=== PATIENT | male | born 1975 | race Caucasian/White ===

== ENCOUNTER 2016-10-21 20:43 | Emergency (ER) | payer MEDICAID, OTHER ==
[2016-10-21 21:19] VITALS: BP 151/81
[2016-10-21] MEDS ORDERED: Lidocaine 1% 20 ML MDV ONE (21:25)
[2016-10-21] MEDS ORDERED: Lidocaine 1% 20 ML MDV SUBCUT ONE (21:56)
--- NOTE | 2016-10-21 22:01 | EDM.PDOC ---
ED HPI GENERAL MEDICAL PROBLEM - General Chief Complaint: Laceration Stated Complaint: RIGHT FOOT INJURY Time Seen by Provider: 10/21/16 21:19 Source of Information: Reports: Patient History Limitations: Reports: No Limitations - History of Present Illness INITIAL COMMENTS - FREE TEXT/NARRATIVE: Patient presents with injury to right second toe that occurred shortly prior to ER arrival. He stubbed his toe on a clean sharp axe head. He can move and wiggle it normally he says. He says his last tetanus was 3 years ago. No diabetes or immunocompromise. Right 2-Long toe Pain Score (Numeric/FACES): 3 - Related Data Allergies Allergy/AdvReac Type Severity Reaction Status Date / Time hydrocodone [From Vicodin] Allergy Nausea and Verified 10/21/16 21:06 Vomiting Home Meds: Home Meds . [No Known Home Meds] 10/21/16 [History] ED ROS GENERAL - Review of Systems Review Of Systems: ROS reveals no pertinent complaints other than HPI. ED EXAM, SKIN/RASH Exam: See Below Exam Limited By: No Limitations General Appearance: Alert, WD/WN, No Apparent Distress Eye Exam: Bilateral Eye: EOMI, Normal Inspection, PERRL Ears: Normal External Exam, Hearing Grossly Normal Throat/Mouth: Normal Lips, Normal Voice, No Airway Compromise Head: Atraumatic, Normocephalic Neck: Full Range of Motion Respiratory/Chest: No Respiratory Distress, No Accessory Muscle Use Cardiovascular: No Edema Extremities: Normal Range of Motion, Normal Capillary Refill, Other (Right second toe has a laceration diagonally across the dorsum of the middle and distal phalanges that ends medial to the nail without injuring the nail. No evidence of tendon injury. Otherwise described in the procedure note.) Neurological: Alert, Oriented, Normal Cognition Psychiatric: Normal Affect, Normal Mood Skin: Warm, Dry, Normal Color, No Rash, Tattoo(s) ED SKIN PROCEDURES - Laceration/Wound Repair Right Dorsal Toes Lac/Wound length In cm: 4 Appearance: Subcutaneous, Irregular (V-shaped), Clean Distal NVT: No Tendon Injury, Other (small area of numbness immediately distal to laceration; sensation intact at distal tip; CMS intact distally) Anesthetic Type: Local Local Anesthesia - Lidocaine (Xylocaine): 1% Plain Local Anesthetic Volume: 3cc Skin Prep: Providone-Iodine (Betadine) Saline Irrigation (cc's): 100 Exploration/Debridement/Repair: Wound Explored Closed with: Sutures Suture Size: 4-0 # of Sutures: 8 Suture Type: Nylon, Interrupted, Simple Sterile Dressing Applied: Nurse Tetanus Status Addressed: Yes Complications: No Course - Vital Signs Last Recorded V/S: Last Vital Signs Temp 99.3 F 10/21/16 21:09 Pulse 96 10/21/16 21:09 Resp 16 10/21/16 21:09 BP 151/81 H 10/21/16 21:09 Pulse Ox 97 10/21/16 21:09 - Orders/Labs/Meds Meds: Medications Discontinued Medications Generic Name Dose Route Start Last Admin Trade Name Freq PRN Reason Stop Dose Admin Lidocaine HCl Confirm 10/21/16 21:25 Xylocaine 1% Administered 10/21/16 21:26 Dose 20 ml .ROUTE .STK-MED ONE - Re-Assessments/Exams Free Text/Narrative Re-Assessment/Exam: 10/21/16 22:04 Discussed findings and treatment plan with patient and he was discharged in stable condition. Departure - Departure Time of Disposition: 21:56 Disposition: Home, Self-Care 01 Condition: Good Clinical Impression: Laceration of toe without foreign body present or damage to nail Qualifiers: Encounter type: initial encounter Toe: lesser toe Laterality: right Qualified Code(s): S91.114A - Laceration without foreign body of right lesser toe(s) without damage to nail, initial encounter - Discharge Information Instructions: Laceration Care, Adult, [id number] Referrals: PCP,None [Primary Care Provider] - Additional Instructions: 1. Keep wound clean and dry except for showering. No submerging in tub or pool until sutures are removed. 2. If any redness, drainage, fever or other sign of infection appear recheck SHANTAL with your PCP. 3. Follow up with your PCP in 10 days for suture removal.
== END 2016-10-21 22:10 | disposition home or self-care (01) ==
LOC: KA.ED 20:43
DX: S91.114A Laceration without foreign body of right lesser toe(s) without damage to nail, initial encounter (principal); Z88.5 Allergy status to narcotic agent; W27.0XXA Contact with workbench tool, initial encounter
CPT/HCPCS: 12002; 99283

== ENCOUNTER 2020-11-26 13:08 | Emergency (ER) | payer SELFPAY ==
--- NOTE | 2020-11-26 13:18 | EDM.PDOC ---
ED HPI GENERAL MEDICAL PROBLEM - General Chief Complaint: Lower Extremity Injury/Pain Stated Complaint: LEFT LEG PAIN Time Seen by Provider: 11/26/20 13:17 Source of Information: Reports: Patient History Limitations: Reports: No Limitations - History of Present Illness INITIAL COMMENTS - FREE TEXT/NARRATIVE: 45 YO WM PRESENTS TO ER COMPLAINING OF LEFT LEG PAIN AFTER INJURY WHILE WRESTLING. PT HOLDING HIS LEFT HAMSTRING COMPLAINING OF PAIN. PT HERE REQUESTING AN MRI TO EVALUATE HAMSTRING INJURY. PT CONCERNED FOR TEAR. PT ABLE TO AMBULATE WITHOUT DIFFICULTY, BUT REPORTS LEFT HAMSTRING IS VERY TENDER TO TOUCH. NO KNEE, LOW BACK OR HIP INJURY NOTED. PT DENIES ANY RADICULAR PAIN. Onset Date: 11/25/20 Location: Reports: Lower Extremity, Left Quality: Reports: Ache Severity: Moderate Improves with: Reports: Rest Worsens with: Reports: Movement Context: Reports: Activity Associated Symptoms: Reports: No Other Symptoms Left Upper Thigh Pain Score (Numeric/FACES): 6 - Related Data Allergies Allergy/AdvReac Type Severity Reaction Status Date / Time hydrocodone [From Vicodin] Allergy Nausea and Verified 11/26/20 13:57 Vomiting Home Meds: Home Meds . 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 Social & Family History - Caffeine Use Caffeine Use: Reports: Coffee Review of Systems - Review of Systems Review Of Systems: See Below Constitutional: Reports: No Symptoms Eyes: Reports: No Symptoms Ears: Reports: No Symptoms Nose: Reports: No Symptoms Mouth/Throat: Reports: No Symptoms Respiratory: Reports: No Symptoms Cardiovascular: Reports: No Symptoms GI/Abdominal: Reports: No Symptoms Genitourinary: Reports: No Symptoms Musculoskeletal: Reports: Leg Pain, Muscle Pain Skin: Reports: No Symptoms Neurological: Reports: No Symptoms Psychiatric: Reports: No Symptoms ED EXAM, GENERAL - Physical Exam Exam: See Below Exam Limited By: No Limitations General Appearance: Alert, WD/WN, No Apparent Distress Respiratory/Chest: No Respiratory Distress, Lungs Clear, Normal Breath Sounds, No Accessory Muscle Use, Chest Non-Tender Cardiovascular: Normal Peripheral Pulses, Regular Rate, Rhythm, No Edema, No Gallop, No JVD, No Murmur, No Rub GI/Abdominal: Normal Bowel Sounds, Soft, Non-Tender, No Organomegaly, No Distention, No Abnormal Bruit, No Mass Back Exam: Normal Inspection, Full Range of Motion, NT Extremities: Leg Pain, Limited Range of Motion Neurological: Alert, Oriented, CN II-XII Intact, Normal Cognition, Normal Gait, No Motor/Sensory Deficits Psychiatric: Normal Affect, Normal Mood Skin Exam: Warm, Dry, Intact, Normal Color, No Rash Lymphatic: No Adenopathy Course - Vital Signs Last Recorded V/S: Last Vital Signs Temp 97.5 F 11/26/20 13:57 Pulse 67 11/26/20 13:57 Resp 20 11/26/20 13:57 BP 130/82 11/26/20 13:57 Pulse Ox 98 11/26/20 13:57 - Orders/Labs/Meds Orders: Active Orders 24 hr Category Date Time Status Femur Min 2V Lt [CR] Stat Exams 11/26/20 14:16 Ordered - Radiology Interpretation Free Text/Narrative:: LEFT FEMUR- NO FX - Re-Assessments/Exams Free Text/Narrative Re-Assessment/Exam: 11/26/20 15:03 PT WAS VERY DEMANDING FOR AN MRI OF HIS HAMSTRING. AFTER A VERY LENGTH DISCUSSION REGARDING OUR INABILITY TO GET HIM AN MRI TODAY FOR HIS HAMSTRING STRAIN WELL HE IS WELCOME TO GO TO A FACILITY THAT HAS MRI AVAILABLE WITHOUT A DOCTORS PRESCRIPTION IF HE FEELS THAT IS WHAT HE NEEDS TO ASSIST WITH HIS INJURY. I OFFERED PAIN MEDICATION TO GO HOME, I OFFERED TORADOL HERE NOW. PT ASKED ME "WELL IF YOU CAN'T GIVE ME AN MRI, WHAT DID YOU DO FOR ME TODAY?" I AGAIN REITERATED THAT I DID AN X-RAY TO RULE OUT AVULSION TYPE INJURY, OFFERED YOU PAIN MEDICATION AND RECOMMENDED MULTIPLE MODALITIES FOR TREATMENT PAIN. PT WAS VERY UPSET AND WALKED OUT. VERBAL DISCHARGE INSTRUCTIONS WERE GIVEN. Departure - Departure Time of Disposition: 14:55 Disposition: Home, Self-Care 01 Condition: Good Clinical Impression: Hamstring strain Qualifiers: Encounter type: initial encounter Laterality: left Qualified Code(s): S76.312A - Strain of muscle, fascia and tendon of the posterior muscle group at thigh level, left thigh, initial encounter - Discharge Information Instructions: Hamstring Strain Rehab-[facility], Muscle Strain Referrals: SomersetDiandra,Torri A, MD [Primary Care Provider] - Forms: ED Department Discharge Additional Instructions: 1. DISCHARGE HOME 2. ALTERNATE ICE AND HEAT TO HAMSTRING 3. FRANCHESKA WRAP 4. MOTRIN 600MG EVERY 6 HOURS FOR PAIN 5. FOLLOW UP WITH DR TORRI CHEW- FOR FUTHER EVALUATION AND TREATMENT 6. RETURN TO ER FOR WORSENING SYMPTOMS Sepsis Event Note (ED) - Focused Exam Vital Signs: Vital Signs Temp Pulse Resp BP Pulse Ox 11/26/20 13:57 97.5 F 67 20 130/82 98 11/26/20 13:52 97.5 F 67 20 130/82 98 - My Orders Last 24 Hours: My Active Orders 11/26/20 14:16 Femur Min 2V Lt [CR] Stat - Assessment/Plan Last 24 Hours: My Active Orders 11/26/20 14:16 Femur Min 2V Lt [CR] Stat Assessment:: 1. LEFT HAMSTRING STRAIN Plan: 1. DISCHARGE HOME 2. ICE TO HAMSTRING 3. FRANCHESKA WRAP 4. MOTRIN 600MG EVERY 6 HOURS FOR PAIN 5. FOLLOW UP WITH DR TORRI CHEW- FOR FUTHER EVALUATION AND TREATMENT 6. RETURN TO ER FOR WORSENING SYMPTOMS
--- NOTE | 2020-11-26 14:51 | CR ---
[id number] RAD/RAD Femur Left 2V EXAM: 4 VIEWS LEFT FEMUR INDICATION: INJURY. COMPARISON: None. DISCUSSION: No fracture, dislocation or other acute osseous abnormality. IMPRESSION: 1. No acute osseous abnormalities. Ruiz Mancini DO 11/26/20 [id number] Thank you for allowing us to participate in the care of your patient.
[2020-11-26 15:17] VITALS: BP 128/77; PULSE 74
== END 2020-11-26 15:10 | disposition home or self-care (01) ==
LOC: KA.ED 13:08
DX: S76.312A Strain of muscle, fascia and tendon of the posterior muscle group at thigh level, left thigh, initial encounter (principal); Z88.5 Allergy status to narcotic agent; X58.XXXA Exposure to other specified factors, initial encounter; Y93.72 Activity, wrestling
CPT/HCPCS: 99283